=== PATIENT | female | born 1995 | race Hispanic/Latino ===

== ENCOUNTER 2020-12-03 22:30 | Emergency (ER) | payer SELFPAY ==
[2020-12-03] MEDS ORDERED: ACETAMINOPHEN 325 MG TAB PO ONE (23:26)
--- NOTE | 2020-12-03 23:59 | Emergency Department Report ---
ED Female HPI - General Chief complaint: Urogenital-Female Stated complaint: 6 WKS PREG/UTI Source: patient Mode of arrival: Ambulatory Limitations: No Limitations - History of Present Illness Initial comments: Patient is a A0 25-year-old white female with no past medical history and who is approximately 25 weeks gestation presents to the ED with complaint of acute onset persistent suprapubic pressure, urinary frequency and urgency, dysuria and vaginal irritation for the last 2 days. Patient states that she has not had any care because of chronic drug addiction for which she is currently weaning herself out of. Patient denies fever, chills, vaginal bleeding, vaginal discharge, abdominal pain, chest pain, shortness of breath, low back pain, chest pain or shortness of breath. MD Complaint: dysuria, pelvic pain (Pressure), other (Urinary frequency and urgency) -: Sudden, days(s) (2) Location: suprapubic, other (Vaginal) Radiation: non-radiating Severity: moderate Severity scale (0 -10): 4 Quality: burning Consistency: constant Improves with: none Worsens with: urination Are you Now?: Yes (25 weeks gestation) Associated Symptoms: denies other symptoms, abdominal pain (Suprapubic pressure), dysuria, other (Urinary frequency and urgency). denies: vaginal discharge, vaginal bleeding, nausea/vomiting, fever/chills, headaches, loss of appetite, hematuria, rash, seizure, shortness of breath, syncope, weakness - Related Data Sexually active: Yes : 3 Para: 2 A: 0 Previous Rx's Medication Instructions Recorded Last Taken Type Nystatin Oint [Mycostatin Oint] 1 applicatio TP TID #1 tube 12/04/20 Unknown Rx Allergies Allergy/AdvReac Type Severity Reaction Status Date / Time fluconazole [From Diflucan] AdvReac Hives Verified 12/03/20 23:08 ED Review of Systems ROS: Stated complaint: 6 WKS PREG/UTI Other details as noted in HPI Constitutional: denies: chills, fever Eyes: denies: eye pain, eye discharge, vision change ENT: denies: ear pain, throat pain Respiratory: denies: cough, shortness of breath, wheezing Cardiovascular: denies: chest pain, palpitations Endocrine: no symptoms reported Gastrointestinal: abdominal pain (Suprapubic pressure). denies: nausea, vomiting, diarrhea Genitourinary: urgency, dysuria, frequency. denies: discharge Musculoskeletal: denies: back pain, joint swelling, arthralgia Skin: denies: rash, lesions Neurological: denies: headache, weakness, paresthesias Psychiatric: denies: anxiety, depression Hematological/Lymphatic: denies: easy bleeding, easy bruising ED Past Medical Hx - Social History Smoking Status: Never Smoker Substance Use Type: Alcohol, Other - Medications Home Medications: Home Medications Medication Instructions Recorded Confirmed Last Taken Type Nystatin Oint [Mycostatin Oint] 1 applicatio TP TID #1 tube 12/04/20 Unknown Rx ED Physical Exam - General Limitations: No Limitations General appearance: alert, in no apparent distress - Head Head exam: Present: atraumatic, normocephalic, normal inspection - Eye Eye exam: Present: normal appearance, PERRL, EOMI Pupils: Present: normal accommodation - ENT ENT exam: Present: normal exam, normal orophraynx, mucous membranes moist, TM's normal bilaterally, normal external ear exam - Neck Neck exam: Present: normal inspection, full ROM - Respiratory Respiratory exam: Present: normal lung sounds bilaterally. Absent: respiratory distress, wheezes, rales, stridor, chest wall tenderness, accessory muscle use, decreased breath sounds, prolonged expiratory - Cardiovascular Cardiovascular Exam: Present: regular rate, normal rhythm, normal heart sounds. Absent: systolic murmur, diastolic murmur, rubs, gallop - GI/Abdominal GI/Abdominal exam: Present: soft, normal bowel sounds. Absent: tenderness, guarding, rebound, hyperactive bowel sounds, hypoactive bowel sounds, organomegaly - External exam: Present: erythema, other (Mild vaginal irritation with mild white discharge) Bi-manual exam: Present: other (Female internal medicine veterinary technician Ms. Owens present as director of religious life) - Extremities Exam Extremities exam: Present: normal inspection, full ROM, normal capillary refill - Back Exam Back exam: Present: normal inspection, full ROM. Absent: tenderness, CVA tenderness (R), muscle spasm, paraspinal tenderness, vertebral tenderness - Neurological Exam Neurological exam: Present: alert, oriented X3, CN II-XII intact, normal gait, reflexes normal - Psychiatric Psychiatric exam: Present: normal affect, normal mood - Skin Skin exam: Present: warm, dry, intact, normal color. Absent: rash ED Course Vital Signs 12/03/20 23:08 Temperature 98.3 F Pulse Rate 90 Respiratory 20 Rate Blood Pressure 118/69 O2 Sat by Pulse 99 Oximetry ED Medical Decision Making - Medical Decision Making This is a A0 25-year-old white female with no past medical history and who is approximately 25 weeks gestation presents to the ED with complaint of acute onset persistent suprapubic pressure, urinary frequency and urgency, dysuria and vaginal irritation for the last 2 days. Patient states that she has not had any care because of chronic drug addiction for which she is currently weaning herself out of. In the ED, patient is alert and oriented x3 and is not in any distress. Urinalysis showed no acute UTI and pelvic exam shows mild vaginal irritation consistent with Lucila vaginitis. Patient was therefore discharged home on medications and advised to follow-up with her [employer] physician in 2 to 3 days for reevaluation. Patient was advised return to the ED immediately if symptoms get worse. - Differential Diagnosis UTI; bacterial vaginosis; Lucila vaginitis; ; Critical care attestation.: If time is entered above; I have spent that time in minutes in the direct care of this critically ill patient, excluding procedure time. ED Disposition Clinical Impression: Vaginal irritation, Lucila vaginitis Disposition: 01 HOME / SELF CARE / HOMELESS Is pt being admited?: No Does the pt Need Aspirin: No Condition: Stable Instructions: Vaginal Yeast Infection, Adult, Vaginitis, [id number] Additional Instructions: Urinalysis is unremarkable. Apply the medication as advised to the affected area. Follow-up with the [employer] physician Dr. Koroma in 3 to 5 days for reevaluation. Return to the ED immediately if symptoms get worse. Prescriptions: Nystatin Oint [Mycostatin Oint] 1 applicatio TP TID #1 tube Referrals: NICKI KOROMA MD [Staff Physician] - 3-5 Days Time of Disposition: 02:34 Print Language: [place]
[2020-12-04 01:27] LABS: HCG Qualitative,Urine Positive (Negative)
[2020-12-04 01:30] LABS: Bacteria,Urine 1+ /HPF (Negative); Bilirubin,Urine NEG (Negative); Blood,Urine NEG (Negative); Color,Urine Yellow (Yellow); Mucus,Urine 1+ /HPF; Protein,Urine <15 mg/dL mg/dL (Negative); Urobilinogen,Urine < 2.0 mg/dL (<2.0)
[2020-12-04 02:57] VITALS: BP 106/60
== END 2020-12-04 02:57 | disposition home or self-care (01) ==
LOC: ED 22:30
DX: O26.892 Other specified pregnancy related conditions, second trimester (principal); B37.3 Candidiasis of vulva and vagina; R10.30 Lower abdominal pain, unspecified; R30.0 Dysuria; Z72.89 Other problems related to lifestyle; Z79.899 Other long term (current) drug therapy; Z3A.25 25 weeks gestation of pregnancy
CPT/HCPCS: 81001; 81025; 87086; 99283